=== PATIENT | male | born 1950 | race Caucasian/White ===

== ENCOUNTER 2021-01-13 09:55 | Emergency (ER) | payer MEDICARE, OTHER, SELFPAY ==
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
[2021-01-13 10:03] VITALS: BP 157/83; PULSE 85; RESP 16; TEMP 37.1; O2SAT 97; BMI 25.7
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
[2021-01-13] MEDS: ACETAMINOPHEN 325 MG TABLET 650 MG PO (11:14)
[2021-01-13 11:53] VITALS: BP 162/80; PULSE 64; RESP 17; O2SAT 98
== END 2021-01-13 11:54 | disposition home or self-care (01) ==
LOC: ED 11:08
PROVIDERS: Emergency Provider Emergency Medicine
DX: S09.8XXA Other specified injuries of head, initial encounter (principal); Y24.0XXA Airgun discharge, undetermined intent, initial encounter
CPT/HCPCS: 70450; 99284